=== PATIENT | female | born 1940 | race Caucasian/White ===

== ENCOUNTER → 2016-04-30 | Day surgery (SDC) | payer MEDICARE, OTHER ==
[~2016-04-30] MED LIST: DARV PO; HYDR-2768 PO; PROPOFOL 100 MG/10 ML INJ IV ONE; SODIUM CHLORIDE 0.9% INJ 10 ML ONE; TRIAMCINOLONE ACETONIDE 40 MG/ML VIAL ONE
== END | disposition home or self-care (01) ==
LOC: ESDC 07:50
PROVIDERS: ATTEND Anesthesiology Pain Medicine
DX: M51.36 Other intervertebral disc degeneration, lumbar region (principal)
CPT/HCPCS: 62323; J3301; 77003

== ENCOUNTER → 2017-10-05 | Outpatient (CLI) | payer MEDICARE, OTHER ==
[~2017-10-05] MED LIST changes: -PROPOFOL 100 MG/10 ML INJ IV ONE; -SODIUM CHLORIDE 0.9% INJ 10 ML ONE; -TRIAMCINOLONE ACETONIDE 40 MG/ML VIAL ONE
[2017-10-05 12:26] LABS: AUTOMATED NEUTROPHIL # 3.4 TH/MM3 (1.8-7.7); BASOPHIL % 0.4 % (0.0-2.0); EOSINOPHIL # 0.1 TH/MM3 (0-0.4); EOSINOPHIL % 1.2 % (0.0-4.0); HEMATOCRIT 43.6 % (35.0-46.0); HEMOGLOBIN 14.6 GM/DL (11.6-15.3); LYMPH % 26.2 % (9.0-44.0); LYMPHOCYTE # 1.4 TH/MM3 (1.0-4.8); MEAN CELL VOLUME 90.8 FL (80.0-100.0); MEAN CORPUSCULAR HEMOGLOBIN 30.4 PG (27.0-34.0); MEAN CORPUSCULAR HGB CONC 33.4 % (32.0-36.0); MEAN PLATELET VOLUME 7.6 FL (7.0-11.0); MONO % 7.5 % (0.0-8.0); MONOCYTE # 0.4 TH/MM3 (0-0.9); NEUT % 64.7 % (16.0-70.0); PLATELET COUNT 324 TH/MM3 (150-450); WHITE BLOOD COUNT 5.3 TH/MM3 (4.0-11.0)
[2017-10-05 12:32] LABS: INTERNATIONAL NORMALIZED RATIO 1.1 RATIO; PROTHROMBIN TIME - PATIENT 10.8 SEC (9.8-11.6)
[2017-10-05 12:56] LABS: BICARBONATE 25.9 MEQ/L (21.0-32.0); CALCIUM 9.1 MG/DL (8.5-10.1); CREATININE 0.72 MG/DL (0.50-1.00)
--- NOTE | 2017-10-05 13:18 | RADRPT ---
EXAM DATE: 10/05/2017 1:09 PM EDT AGE/SEX: 77 years / Female INDICATIONS: Evaluate for pneumonia, pneumothorax or communicable disease. Pre op hip replacement. CLINICAL DATA: This is the patient's initial encounter. Patient reports that signs and symptoms have been present for 1 day and indicates a pain score of 0/10. MEDICAL/SURGICAL HISTORY: None. None. COMPARISON: No prior exams available for comparison. FINDINGS: PA and lateral views of the chest demonstrate the lungs to be symmetrically aerated without evidence of mass, infiltrate or effusion. Mild cardiomegaly. Osseous structures are intact. CONCLUSION: Mild compensated cardiomegaly Electronically signed by: Tucker Fink MD 10/05/2017 1:17 PM EDT
[2017-10-05 14:06] LABS: BILIRUBIN, URINE NEG (NEG); BLOOD, URINE SMALL (NEG); GLUCOSE,URINE NEG (NEG); KETONE, URINE NEG (NEG); NITRITE,URINE NEG (NEG); URINE COLOR Straw (YELLW/STRAW); URINE LEUKOCYTE ESTERASE NEG (NEG)
--- NOTE | 2017-10-05 15:26 | EKG ---
Date Performed: 10/05/2017 Time Performed: 12:00:07 PTAGE: 77 years EKG: Sinus rhythm POSSIBLE LEFT ATRIAL ENLARGEMENT LOW QRS VOLTAGE IN PRECORDIAL LEADS Nonspecific T wave changes BORD NEFTALI ECG No significant change from prior electrocardiogram. DOCTOR: Earle Naik Interpretating Date/Time 10/05/2017 15:25:25
== END ==
LOC: CPRE 11:33
PROVIDERS: ATTEND Orthopaedic Surgery Orthopaedic Trauma
DX: Z01.810 Encounter for preprocedural cardiovascular examination (principal); Z01.811 Encounter for preprocedural respiratory examination; Z01.812 Encounter for preprocedural laboratory examination; Z01.818 Encounter for other preprocedural examination; Z96.60 Presence of unspecified orthopedic joint implant; Z79.01 Long term (current) use of anticoagulants; Z13.9 Encounter for screening, unspecified; M16.11 Unilateral primary osteoarthritis, right hip; M79.609 Pain in unspecified limb; R94.31 Abnormal electrocardiogram [ECG] [EKG]
CPT/HCPCS: 36415; 71046; 80048; 81001; 85025; 85610; 85730; 93005

== ENCOUNTER 2017-10-20 05:58 | Inpatient (IN) ==
[2017-10-20] MEDS ORDERED: Chlorhexidine Gluconate 2% 1 Pack (2 Cloths) TOPICAL SCH (06:30)
[2017-10-20] MEDS ORDERED: Metoprolol Tartrate 25 MG Tablet PO SCH (06:30)
[2017-10-20] MEDS ORDERED: Dexamethasone Inj 20 MG/5 ML Vial IV.PUSH ONE (06:31)
[2017-10-20] MEDS ORDERED: Celecoxib 200 MG Capsule PO ONE (06:31)
[2017-10-20] MEDS ORDERED: Famotidine PF Inj 20 MG/2 ML Vial IV.PUSH ONE (06:31)
[2017-10-20] MEDS ORDERED: Gabapentin 300 MG Capsule PO ONE (06:31)
[2017-10-20] MEDS ORDERED: Bupivacaine/Epi PF 0.25% Inj 20 ML, Bupivacaine Liposo PF 1.3% Inj 20 ML, Sodium Chlor ... P-ARTICULR SCH ×2 (06:45)
[2017-10-20] MEDS ORDERED: Chlorhexidine 4% Topical 120 APPLIC/120 ML Bottle TOPICAL SCH (06:45)
[2017-10-20] MEDS ORDERED: ceFAZolin 2 GM Premix Inj 2 GM/50 ML PIGGYBACK IV.SIG SCH (07:00)
[2017-10-20] MEDS ORDERED: TRANEXAMIC ACID IV.SIG SCH ×2 (07:00→12:00)
[2017-10-20] MEDS ORDERED: SODIUM CHLOR 0.9% IV.SIG SCH ×2 (07:00→12:00)
[2017-10-20] MEDS ORDERED: Sodium Chlor 0.9% Inj 500 ML IV.SIG SCH (07:00)
[2017-10-20] MEDS ORDERED: Vancomycin Inj 1 GM/200 ML PIGGYBACK IV.SIG SCH ×2 (07:00→20:00)
[2017-10-20] MEDS ORDERED: Promethazine 25 MG Supp RECTAL PRN (10:14)
[2017-10-20] MEDS ORDERED: Morphine Inj 4 MG/ML Vial IV.PUSH PRN (10:14)
[2017-10-20] MEDS ORDERED: Bisacodyl 10 MG Supp RECTAL PRN (10:14)
[2017-10-20] MEDS ORDERED: Post-op Orders (for Pharmacy) OTHER STA (10:14)
--- NOTE | 2017-10-20 10:29 | P.OP ---
Date of procedure: 10/20/17 Procedure: Severe right hip osteoarthritis Anesthesia: GETA Surgeon: Vel Malave MD Laundry Aide: MARILU March PA-C The surgical procedure was assisted by my physician events assistant. My P.A. presence was necessary throughout this case for the manipulation and positioning of the surgical extremity. My P.A. was assisting me throughout the duration of this procedure. The skill set of a physician events assistant was medically necessary to complete this procedure. During the surgical case the collision technician was working at the back table and the physician events assistant was directly assisting me. Operation and Findings: PLAN OF ACTIVITY Weight bear as tolerated. IMPLANTS USED DePuy Corail size [12] collared stem with a size [54] Dallas Gription cup, [54 /36] Altrx poly liner, and a [36+1 metal head. DETAILS OF PROCEDURE: This patient has a long history of hip pain. Patient was found to have severe osteoarthritis. The patient had radiographic evidence of joint space narrowing with [id number] arthritis and osteophytes around the acetabulum as well as the femoral head. There was also some cystic changes. The patient failed conservative treatment with pain medications, anti-inflammatories, physical therapy, assistive devices including a cane, as well as therapeutic injection of the hip. Patient's hip arthritis was limiting his ability to ambulate and perform activities of daily living. The patient wished to proceed with surgery and informed consent was obtained. Operative site was marked. I discussed both posterior approach and anterior approach with the patient and decision was made for anterior approach. Patient was brought to OR and placed on OR table. IV sedation and general anesthesia was administered by anesthesiologist. Patient positioned on a Janae table and was given IV antibiotics. Time-out procedure was performed. The hip and thigh were prepped with alcohol followed by Hibiclens. The thigh was draped in the usual sterile fashion. Clean Air Suite was used for this procedure. The procedure began with a 5-inch incision over the anterolateral thigh. Subcutaneous tissue was dissected with Bovie. The fascia over the tensa fasciae latae was incised. Care was taken to avoid injury to the lateral femoral cutaneous nerve. The tensor muscle was retracted laterally. Sartorius was retracted medially. Retractors were now placed. The reflected head of the rectus is now elevated. A capsulotomy was performed over the anterior head capsule. Sutures were placed to help retract the capsule. At this point the femoral head and neck were identified. With soft tissue protected, oscillating saw was used to make a cut through the femoral neck, the femoral head was now removed. At this point attention was turned to preparation of the acetabulum. The labrum was excised. The acetabulum was sequentially reamed up to size [12]. A Dallas cup was now placed. Fluoroscopy was used to aid in identification of appropriate version. Cup was fully impacted and found to have excellent fit. Hole eliminator was now placed. The liner was now impacted into the cup. At this point the hip was externally rotated. A hook was placed around the proximal femur. The capsule was released off the lateral and medial femur. The hip was now extended and adducted. Retractors were placed around the proximal femur to allow for exposure. A box osteotome was used to remove the lateral cortex of the femoral neck. A broach was used to help lateralize the prosthesis. Canal finder was used to create a path down the canal. Next, the canal was sequentially broached up to size [12]. This was found to be an excellent fit. Calcar planer was placed. A standard head was placed, and the hip was reduced. The hip was found to have excellent stability with good range of motion. The leg lengths were measured under fluoroscopy and found to be equal compared to preoperatively. Trial broach was removed. The Corail stem was opened. Stem was fully impacted into the proximal femur in appropriate version. The femoral head was placed. The hip was again reduced. Fluoroscopy confirmed excellent alignment of prosthesis. The wound was thoroughly irrigated and capsule was closed with #1 Vicryl. The fascia over the tensor fasciae muscle was closed with #1 Vicryl, subcutaneous tissue was closed with 3-0 Vicryl and the skin was closed with dalila and Dermabond skin closure. The capsule layers, muscle, and subcutaneous tissue were injected with a mixture of saline and bupivicaine. Dressings were applied. The patient was transferred to Recovery Room in stable condition.
[2017-10-20] MEDS ORDERED: hydroCHLOROthiazide 25 MG Tablet PO SCH (10:30)
[2017-10-20] MEDS ORDERED: fentaNYL Citrate Inj 100 MCG/2 ML Ampul ONE ×2 (10:54)
--- NOTE | 2017-10-20 11:01 | P.DCO ---
- Physical Therapy Physical Therapy: Gait training, Safety evaluation Hip: Total hip, Protocol: Right Right Lower Extremity Weight Bearing: Weight bearing as tolerated - Nursing Dressing changes: Daily dressing change (begin 10/26/17. ensure surgical tape remains), Coverderm/Primapore (beginning 10/26/17) - Certification Need for Home Health services: I have seen patient Brenna Oconnor on 10/20/17. My clinical findings support the need for the requested home health care services because: Need for Home Health Services: Limited mobility due to disease progression Homebound Certification: I certify that my clinical findings support that this patient is homebound because: Homebound Certification: Post-op weakness
[2017-10-20] MEDS ORDERED: *morphine SULFATE 4 MG/ML PERIprocedure ONLY ONE ×2 (11:04→11:18)
[2017-10-20] MEDS: Ketorolac Inj 30 MG/ML (IVP) Vial IV.PUSH SCH ×2 (11:42→16:31)
--- NOTE | 2017-10-20 11:46 | XR ---
EXAM DATE: 10/20/2017 11:39 AM EDT AGE/SEX: 77 years / Female INDICATIONS: Post-op right hip. CLINICAL DATA: This is the patient's initial encounter. Patient reports that signs and symptoms have been present for 1 day and indicates a pain score of 0/10. MEDICAL/SURGICAL HISTORY: None. None. COMPARISON: No prior exams available for comparison. FINDINGS: 2 views of the right hip demonstrates postsurgical changes following hip replacement. Acetabular and femoral components are well seated and in satisfactory alignment. There are no acute bony abnormalities. CONCLUSION: Satisfactory postoperative appearance of the right hip status post replacement. Electronically signed by: Philip John MD 10/20/2017 11:45 AM EDT
[2017-10-20] MEDS ORDERED: Neostigmine Inj 5 MG/5 ML Syringe IV.PUSH ONE (12:00)
[2017-10-20] MEDS ORDERED: Labetalol HCl Inj 100 MG/20 ML Vial IV.CONT ONE (12:00)
[2017-10-20] MEDS ORDERED: Glycopyrrolate Inj 1 MG/5 ML Syringe IV.PUSH ONE (12:00)
[2017-10-20] MEDS ORDERED: Phenylephrine/NS 1000 MCG/10ML Syringe IV.PUSH ONE (12:00)
[2017-10-20] MEDS ORDERED: Lidocaine PF 1% Inj 5 ML Syringe INFILTRATN ONE (12:00)
--- NOTE | 2017-10-20 12:52 | XR ---
EXAM DATE: 10/20/2017 12:46 PM EDT AGE/SEX: 77 years / Female INDICATIONS: Right total hip replacement. CLINICAL DATA: This is the patient's initial encounter. Patient reports that signs and symptoms have been present for 1 day and indicates a pain score of Nonresponsive. MEDICAL/SURGICAL HISTORY: None. None. COMPARISON: [facility], HIP RIGHT AP ONLY WO AP PELVIS, 03/18/2016. . FINDINGS: 2 intraoperative views of the right hip demonstrate total arthroplasty. Both the femoral and acetabul ar components are appropriately positioned without fracture. CONCLUSION: Appropriate postoperative appearance of the right hip status post total arthroplasty. Electronically signed by: Luis Bob MD 10/20/2017 12:51 PM EDT
[2017-10-20] MEDS: ceFAZolin 2 GM Premix Inj 2 GM/50 ML PIGGYBACK IV.SIG SCH ×2 (17:44→22:45)
[2017-10-20] MEDS ORDERED: Senna/Docusate Sodium 8.6/50 MG Tablet PO SCH (21:00)
[2017-10-20] MEDS ORDERED: Rivaroxaban 10 MG Tablet PO SCH (23:00)
[2017-10-21] MEDS: ceFAZolin 2 GM Premix Inj 2 GM/50 ML PIGGYBACK IV.SIG SCH (03:32)
--- NOTE | 2017-10-21 08:21 | P.PNOP ---
Subjective Interval history: POD 1 s/p Right Anterior GALE doing well. out of bed with walker yesterday. states soreness now. otherwise doing well. Physical Exam Vital signs: Vital Signs 10/20/17 10:45 10/20/17 11:00 10/20/17 11:15 Temperature 97.5 F L Pulse Rate 63 73 70 Respiratory Rate 14 15 15 Blood Pressure 98/59 L 121/67 121/67 Pulse Oximetry 97 99 99 10/20/17 11:30 10/20/17 11:45 10/20/17 12:00 Temperature Pulse Rate 70 63 63 Respiratory Rate 15 15 17 Blood Pressure 118/69 106/60 109/65 Pulse Oximetry 99 100 97 10/20/17 12:30 10/20/17 13:00 10/20/17 14:00 Temperature Pulse Rate 66 75 75 Respiratory Rate 16 18 15 Blood Pressure 102/59 L 107/64 123/67 Pulse Oximetry 99 99 10/20/17 15:20 10/20/17 16:30 10/20/17 20:40 Temperature 96.1 F L 97.3 F L 97.6 F Pulse Rate 66 69 72 Respiratory Rate 17 18 16 Blood Pressure 116/65 137/71 136/74 Pulse Oximetry 96 97 99 10/21/17 00:00 10/21/17 04:45 Temperature 97.5 F L 97.9 F Pulse Rate 67 69 Respiratory Rate 16 16 Blood Pressure 124/72 109/55 L Pulse Oximetry 98 97 Intake & Output 10/20/17 10/21/17 10/21/17 18:59 06:59 18:59 Intake Total 4560 / 4560 530 / 530 Output Total 250 / 250 Balance 4310 / 4310 530 / 530 Intake: IV 50 / 50 Ancef 2 GM Premix Inj 2 gm In 50 / 50 50 ml @ 100 mls/hr IV.SIG Q6H STORM Rx#:[id number] Oral 960 / 960 480 / 480 Anesthesia Amount 3600 / 3600 Output: Urine 0 / 0 Estimated Blood Loss 250 / 250 Other: # Voids 1 2 Date of Last Bowel Movement 10/19/17 10/19/17 # Bowel Movements 0 Narrative: RLE: dressing in place. clean and dry. intact. NVI Results - Labs Laboratory Results - last 24 hr 10/20/17 07:20 Blood Type O Positive Antibody Screen Negative - Imaging Impressions Hip X-Ray 10/20/17 00:00 CONCLUSION: Satisfactory postoperative appearance of the right hip status post replacement. Hip X-Ray 10/20/17 00:00 CONCLUSION: Appropriate postoperative appearance of the right hip status post total arthroplasty. Assessment and Plan - Problem List (1) Status post total hip replacement, right Code(s): Z96.641 - Presence of right artificial hip joint Status: Acute - Assessment and Plan 1) Right Anterior GALE - POD 1 -WBAT -maintain dressing x 6 days and begin daily dressing changes with primapore POD 7 -DVT prophylaxis - will be discharged with xarelto due to family hx of DVT -pain meds on chart -CM for HHC -plan for DC home this afternoon after therapy if doing well. if struggles, can wait til tomorrow -f/u with [facility] or [facility] in 2 weeks
--- NOTE | 2017-10-21 08:22 | P.DCO ---
- Physical Therapy Physical Therapy: Gait training Hip: Total hip, Protocol: Right, Progress to weight bearing Right Lower Extremity Weight Bearing: Weight bearing as tolerated - Nursing Dressing changes: Do not change dressing (x 6 days), Daily dressing change ( beginning POD 7 with primapore) - Certification Need for Home Health services: I have seen patient Brenna Oconnor on 10/21/17. My clinical findings support the need for the requested home health care services because: Need for Home Health Services: Limited mobility due to disease progression Homebound Certification: I certify that my clinical findings support that this patient is homebound because: Homebound Certification: Post-op weakness
== END 2017-10-21 16:41 | disposition home health service (06) ==
LOC: HSDI 05:58 → N06 15:31
PROVIDERS: ADMIT Orthopaedic Surgery Orthopaedic Trauma; ATTEND Orthopaedic Surgery Orthopaedic Trauma